=== PATIENT | female | born 1995 | race African-American/Black ===

== ENCOUNTER 2021-07-11 14:19 | Emergency (ER) | payer OTHER, SELFPAY ==
[~2021-07-11] VITALS: Ht 172.7 cm; Wt 95.5 kg
[~2021-07-11 14:19] MED LIST: NOCURR
[2021-07-11] MEDS ORDERED: ACETAMINOPHEN 500 MG TABLET PO ONE (16:15)
[2021-07-11 16:24] VITALS: BP 132/81
== END 2021-07-11 17:51 | disposition left against medical advice (07) ==
LOC: EMS 14:23
DX: R13.10 Dysphagia, unspecified (principal); Z53.21 Procedure and treatment not carried out due to patient leaving prior to being seen by health care provider
CPT/HCPCS: 87430